=== PATIENT | female | born 1940 ===

== ENCOUNTER → 2023-05-24 12:00 | Outpatient (REF) | payer MEDICARE, SELFPAY ==
--- NOTE | 2023-05-18 11:17 | PN.DIAED02 ---
Referral
DSME Class Series Code: [id number]
Referred For: Diabetes Self-Management Training
PHI Release Authorization Form Signed: Yes
Demographic
(1) Type 2 diabetes mellitus
Status: Acute Code(s): E11.9 - Type 2 diabetes mellitus without complications
Patient's primary language-: Chinese
Education: College degree
Occupation: Retired
- Social
Primary Support Person: Self
Primary Care Takers: Self
Living Arrangements: Self
- Learning Methods
Preferred Method: Reading
Glycemic Control
- Blood Glucose Monitoring Assessment
Date: 05/14/23
Blood glucose monitoring at home: No (Munira brought in Contour Next Gen)
Monitor Brands: [employer] (Contour Next Gen)
Frequency: 2x per day
Time: fasting, after breakfast, after lunch, after dinner
- Hemoglobin A1c
Date: 04/09/23
A1C Percentage (%): 8
Medical History of Diabetes
Previous Diabetes Education: Yes
How long ago?: 6-10 years ago (10 yrs)
Previous visit with Dietitian: No
Complications/Comorbidity/Specialist: Hypertension, Other / symptoms (arthritis bilat knees)
Measures
- Anthropometrics
Height: 5 ft 4 in
Actual Weight: 169 lb 6 oz
- Blood Pressure / Pulse
Blood pressure: 156/78
- Diabetes Management
Medical Management for Diabetes: Complete physical exam (01/2023), Dental exam (04/2023), Dilated eye exam (12/2022), Flu Vaccination (Fall 2022), Other (Covid-19 vaccine 12/17,05/20)
Self-Care
- Tobacco Usage
Do you now, or have you ever smoked?: Quit more than 1 year ago (7 years)
- Alcohol & Drugs Usage
Drinks Alcohol: Yes
Amount/day: Rarely
- Meals & Dining
Meals & Dining: Patient skips meals: No, Food Intolerance / Allergy: No, Cultural / Cheondoism Dietary Needs: No
Primary Food Trustee Of Estate: Self
Primary Web Solutions Architect: Self
Dining Out Frequency: 1-3x per week (1-2)
- Physical Activity
Physical Limitation: Yes (knee pain)
Patient participates in physical Activity: Yes
Activity Types: Other (Ashleigh)
Duration: > 50 minutes (60 min)
Frequency: 1-2x per week (2)
Intensity: Easy
- Patient-Self Assessment
Diabetes Knowledge: Poor
Feelings About Diabetes: Acceptance
General Health: Good
Importance of Health: Extremely
Stress Level: Low
Diabetes Interferes With:: Nothing
Depression Survey Score: 0
Care Plan
- Education Needs
Patient Education Needs: Diabetes disease process, Chronic complications, Acute complications, Medication, Monitoring, Physical activity, Psychosocial Adjustment, Nutritional management, Goal setting & problem solving
Recommended Diabetes Training Program based on assessment: Outpatient Diabetes Education Program
- Plan of Care
Plan of Care:
Most recent A1C 8%, taking Janumet and Glimepiride for DM. Munira brought in a Contour Next Gen glucometer, instructions with fair return demonstration with result of 223 mg/dl. She required verbal cues so had her repeat the process. Wrote down step
by step instructions in her language to use as reference. Aware of testing pattern and expected results, handout provided with this information. States she typically wakes up in the middle of the night and eats a large amount. After discussion, she
will push her dinner back to 6:30 PM, consume a snack (handout provided) around 8:30 to see if this curbs her nightly eating. She is active during most days, senior center/lunches and often gets into bed early so will enjoy her snack in bed. She
participates in [facility] classes twice a week and will walk once the weather is warmer. Pleasant and talkative. Goals established and directions to classroom given. Phone number provided for follow up classes.
--- NOTE | 2023-05-18 11:35 | PN.DIAED04 ---
Education Record
- Education Record
Class Attended: Class 1 (pre registration 05/14/23 for outpt DSME classes starting 05/24/23)
DSME Class Series Code: [id number]
Instructor: Registered Nurse (Maddi Vincent, RN, BSN, [facility])
Class Curriculum:
Outpatient Diabetes Education Program:
Initial Assessment (45 minutes)
Individualized assessment
Develop personal strategies to promote health and behavior change
Development of diabetes self-management support plan
Class Length (mins): 120
Pre-Program Knowledge: No knowledge
Pre-Test Score (%): 59
Goals
- Goal 1
Being Active: Other (Continue Ashleigh 1-2 times per week, in addtion, walk 1 mile 2-3 times per week (weather permitting))
Goals To Be Evaluated: Other
- Goal 2
Healthy Eating: Make better food choices (Have a small snack before bed to reduce eating in the middle of the night.)
Goals To Be Evaluated: Make better food choices
- Goal 3
Monitoring: Take blood sugar in the prescribed pattern
Goals To Be Evaluated: Test BG-prescribed times
--- NOTE | 2023-05-18 11:44 | PN.DIAED10 ---
Update Note
- Diabetes Education Update Note
Notes:
Call placed to Munira to follow up on use of glucose meter. Message left with phone number to call if she is having difficulty.
She returned the call and is not having any problems testing, also realizing how foods are impacting her BS. 'It's been life changing. I am doing major changes in my eating'
--- NOTE | 2023-05-24 15:43 | PN.DIAED04 ---
Education Record
- Education Record
Class Attended: Class 1
DSME Class Series Code: [id number]
Instructor: Nurse Practitioner (MARIANO Roy)
Class Length (mins): 120
Post-Class 1 Test Score (%): 94
--- NOTE | 2023-05-24 15:44 | PN.DIAED14 ---
This is to notify you that your patient with diabetes, MAYNOR ZARAGOZA ( 1940), has enrolled in our diabetes self-management classes that are being held at [facility].
These classes will include an introduction to diabetes, diet, medication, exercise and prevention of complications. At the end of our class series, you will receive a report of your patient's participation and progress for your records.
Please contact me at the Diabetes Center, , if there is any particular information regarding your patient that might be helpful to me.
Sincerely,
--- NOTE | 2023-05-26 16:27 | PN.DIAED06 ---
Meal Plans - Regular
- Meal Plan
Diabetic Meal Plan Name: 1300 calories
Breakfast - Total Carbohydrate (grams): 30
Breakfast - Starch Carbohydrate: 0
Breakfast - Fruit Carbohydrate: 0
Breakfast - Milk Carbohydrate: 0
Breakfast - Nonstarchy Vegetables: Yes
Breakfast - Meat/Protein: 1
Breakfast - Fat: 2
Morning Snack - Total Carbohydrate (grams): 8
Morning Snack - Starch Carbohydrate: 0
Morning Snack - Fruit Carbohydrate: 0
Morning Snack - Milk Carbohydrate: 0
Morning Snack - Nonstarchy Vegetables: Yes
Morning Snack - Meat/Protein: 0.5
Morning Snack - Fat: 0
Lunch - Total Carbohydrate (grams): 30
Lunch - Starch Carbohydrate: 0
Lunch - Fruit Carbohydrate: 0
Lunch - Milk Carbohydrate: 0
Lunch - Nonstarchy Vegetables: Yes
Lunch - Meat/Protein: 2
Lunch - Fat: 1
Afternoon Snack - Total Carbohydrate (grams): 8
Afternoon Snack - Starch Carbohydrate: 0
Afternoon Snack - Fruit Carbohydrate: 0
Afternoon Snack - Milk Carbohydrate: 0
Afternoon Snack - Nonstarchy Vegetables: Yes
Afternoon Snack - Meat/Protein: 0.5
Afternoon Snack - Fat: 0
Dinner - Total Carbohydrate (grams): 30
Dinner - Starch Carbohydrate: 0
Dinner - Fruit Carbohydrate: 0
Dinner - Milk Carbohydrate: 0
Dinner - Nonstarchy Vegetables: Yes
Dinner - Meat/Protein: 2
Dinner - Fat: 1
Evening Snack - Total Carbohydrate (grams): 15
Evening Snack - Starch Carbohydrate: 0
Evening Snack - Fruit Carbohydrate: 0
Evening Snack - Milk Carbohydrate: 0
Evening Snack - Nonstarchy Vegetables: Yes
Evening Snack - Meat/Protein: 0
Evening Snack - Fat: 0
== END ==
LOC: DES 12:00
PROVIDERS: ATTENDING PHYSICIAN Family Medicine
DX: E11.9 Type 2 diabetes mellitus without complications (principal)
CPT/HCPCS: 99078

== ENCOUNTER → 2023-05-31 12:00 | Outpatient (REF) | payer MEDICARE, SELFPAY ==
--- NOTE | 2023-05-31 15:25 | PN.DIAED04 ---
Education Record
- Education Record
Class Attended: Class 2
DSME Class Series Code: [id number]
Instructor: Registered Dietitian (Verna Ballard, RD, LDN, CDE)
Class Length (mins): 120
== END ==
LOC: DES 12:00
PROVIDERS: ATTENDING PHYSICIAN Family Medicine
DX: E11.9 Type 2 diabetes mellitus without complications (principal)
CPT/HCPCS: 99078

== ENCOUNTER → 2023-06-07 12:00 | Outpatient (REF) | payer MEDICARE, SELFPAY ==
--- NOTE | 2023-06-14 10:56 | PN.DIAED04 ---
Education Record
- Education Record
Class Attended: Class 3
DSME Class Series Code: [id number]
Instructor: Registered Dietitian (Verna Ballard, RD, LDN, CDE)
Class Length (mins): 120
Post-Class 2 & 3 Test Score (%): 88
== END ==
LOC: DES 12:00
PROVIDERS: ATTENDING PHYSICIAN Family Medicine
DX: E11.9 Type 2 diabetes mellitus without complications (principal)
CPT/HCPCS: 99078

== ENCOUNTER → 2023-06-14 12:00 | Outpatient (REF) | payer MEDICARE, SELFPAY ==
--- NOTE | 2023-06-15 13:10 | PN.DIAED04 ---
Education Record
- Education Record
Class Attended: Class 4
DSME Class Series Code: [id number]
Instructor: Nurse Practitioner (MARIANO Roy)
Class Length (mins): 120
Post-Class 4 Test Score (%): 93
== END ==
LOC: DES 12:00
PROVIDERS: ATTENDING PHYSICIAN Family Medicine
DX: E11.9 Type 2 diabetes mellitus without complications (principal)
CPT/HCPCS: 99078

== ENCOUNTER → 2023-06-21 12:00 | Outpatient (REF) | payer MEDICARE, SELFPAY ==
--- NOTE | 2023-06-24 12:15 | PN.DIAED04 ---
Education Record
- Education Record
Class Attended: Class 5
DSME Class Series Code: [id number]
Instructor: Nurse Practitioner (MARIANO Roy)
Class Curriculum:
Outpatient Diabetes Education Program:
Class 5 (120 minutes)
Prevent, detect, and treat acute complications
Prevent, detect, and treat chronic complications through risk reduction
Develop personal strategies to address psychosocial issues and concerns
Development of diabetes self-management support plan
Letter to physician with DSMS plan attached sent
Class Length (mins): 120
Post-Program Knowledge: Needs review / Assistance
Post-Test Score (%): 63
Post-Program Assessment
- Post-Program Assessment
Actual Weight: 166 lb
Blood pressure: 155/83
Post-Program Depression Survey Score: 3
Reviewing Previous Goals?: Yes
Pre-Program Depression Survey Score: 0
- Goals 1 Evaluation
Goals To Be Evaluated: Other
- Goals 2 Evaluation
Goals To Be Evaluated: Make better food choices
- Goals 3 Evaluation
Goals To Be Evaluated: Test BG-prescribed times
== END ==
LOC: DES 12:00
PROVIDERS: ATTENDING PHYSICIAN Family Medicine
DX: E11.9 Type 2 diabetes mellitus without complications (principal)
CPT/HCPCS: 99078

== ENCOUNTER → 2023-07-02 06:20 | Day surgery (SDC) | payer MEDICARE, SELFPAY ==
[2023-07-02 08:27] LABS: Glucose - Point of Care 187 mg/dl (70-99)
== END ==
LOC: GI 06:20
PROVIDERS: ATTENDING PHYSICIAN Internal Medicine Gastroenterology
DX: K57.30 Diverticulosis of large intestine without perforation or abscess without bleeding (principal); K29.50 Unspecified chronic gastritis without bleeding; K31.7 Polyp of stomach and duodenum; K44.9 Diaphragmatic hernia without obstruction or gangrene; K31.89 Other diseases of stomach and duodenum; D50.0 Iron deficiency anemia secondary to blood loss (chronic); R12 Heartburn; Z53.9 Procedure and treatment not carried out, unspecified reason; Z98.890 Other specified postprocedural states
CPT/HCPCS: 45378; 43239; 88305; 82962; 88342

== ENCOUNTER → 2023-12-20 09:13 | Outpatient (REF) | payer MEDICARE, SELFPAY | LOC: HWRAD 09:13 | PROVIDERS: ATTENDING PHYSICIAN Internal Medicine Gastroenterology; FAMILY PHYSICIAN Family Medicine | DX: K57.30 Diverticulosis of large intestine without perforation or abscess without bleeding (principal) | CPT/HCPCS: 74261 ==

== ENCOUNTER 2024-03-09 06:25 | Day surgery (SDC) | payer MEDICARE, SELFPAY ==
[2024-03-09 07:08] VITALS: BMI 28.4
[2024-03-09 07:14] VITALS: BP 166/91
[2024-03-09 07:22] LABS: Glucose - Point of Care 184 mg/dl (70-99)
[2024-03-09 07:28] VITALS: BMI 28.4
[2024-03-09 09:20] VITALS: BP 124/75
[2024-03-09 09:30] LABS: Glucose - Point of Care 149 mg/dl (70-99)
[2024-03-09 09:35] VITALS: BP 134/76
[2024-03-09 09:50] VITALS: BP 128/79
== END 2024-03-09 09:53 | disposition home or self-care (01) ==
LOC: SDS 06:25
PROVIDERS: ATTENDING PHYSICIAN Internal Medicine Gastroenterology; FAMILY PHYSICIAN Family Medicine
DX: D12.2 Benign neoplasm of ascending colon (principal); D12.3 Benign neoplasm of transverse colon; D12.4 Benign neoplasm of descending colon; K57.30 Diverticulosis of large intestine without perforation or abscess without bleeding; K64.0 First degree hemorrhoids; Q43.8 Other specified congenital malformations of intestine; R93.3 Abnormal findings on diagnostic imaging of other parts of digestive tract
CPT/HCPCS: 45385; 88305; 82962; C1726